=== PATIENT | male | born 1945 | race Caucasian/White ===

== ENCOUNTER → 2018-07-29 | Outpatient (CLI) | payer MEDICARE, BC ==
--- NOTE | 2018-07-29 09:19 | Diagnostic Imaging Report ---
TECHNIQUE: Magnetic resonance imaging of the RIGHT KNEE was performed WITHOUT injected contrast. HISTORY: Right knee pain COMPARISON: None available. FINDINGS: LIGAMENTS AND TENDONS: ACL: Intact PCL: Intact Collateral ligaments: Intact Iliotibial band: Unremarkable Popliteal tendon: Intact Extensor mechanism: Intact JOINT: Menisci: Medial: Small horizontal tear involving the posterior horn sagittal image 14. Lateral: Intact without tear. Degenerative signal within the anterior horn. Articular Cartilage: Medial Compartment: Diffuse partial-thickness cartilage loss. Focal high-grade fissuring involving the weightbearing femoral condyle Lateral Compartment: Diffuse partial-thickness cartilage loss Patellofemoral Compartment: Diffuse high-grade cartilage loss with areas of full-thickness erosion Joint Fluid: Joint effusion. Small Mcnair's cyst. BONE: No focal or infiltrative bone marrow replacing abnormality. No acute fracture. SOFT TISSUES: Otherwise, unremarkable. IMPRESSION: Medial meniscus small horizontal tear posterior horn. Patellofemoral compartment predominant cartilage loss. Signed by: Dr. Rafael Cazares M.D. on 07/29/2018 9:16 AM
== END ==
LOC: MRI 07:38
PROVIDERS: ATTEND Specialist
DX: S83.281A Other tear of lateral meniscus, current injury, right knee, initial encounter (principal)

== ENCOUNTER 2022-05-07 06:37 | Inpatient (IN) | payer MEDICARE, BC ==
[2022-05-04 09:07] LABS: BASOPHILS # (AUTO) 0.1 (0.0-0.1); BASOPHILS % 1.3 % (0.0-1.0); EOSINOPHILS # (AUTO) 0.5 (0.0-0.4); EOSINOPHILS % 6.4 % (0.0-6.0); HEMATOCRIT 44.1 % (38.2-49.6); HEMOGLOBIN 14.4 g/dL (14.0-18.0); LYMPHOCYTES # (AUTO) 2.3 (1.0-3.2); LYMPHOCYTES % 29.6 % (18.0-39.1); MEAN CORPUSCULAR HEMOGLOBIN 28.8 pg (28-32); MEAN CORPUSCULAR HGB CONC 32.7 g/dL (31-35); MEAN CORPUSCULAR VOLUME 88.2 fL (81-99); MONOCYTES # (AUTO) 0.7 (0.2-0.8); MONOCYTES % 8.9 % (4.4-11.3); NEUTROPHILS # (AUTO) 4.2 (2.1-6.9); NEUTROPHILS % 53.4 % (38.7-80.0); PLATELET COUNT 284 x10e3/uL (140-360); RED CELL DISTRIBUTION WIDTH 13.6 % (11.7-14.4)
[2022-05-04 09:46] LABS: ANION GAP 13.5 mmol/L (8-16); CREATININE, SERUM 0.92 mg/dL (0.72-1.25); POTASSIUM 4.5 mmol/L (3.5-5.1)
[~2022-05-07] VITALS: Ht 175.3 cm; Wt 81.8 kg
[~2022-05-07 06:37] MED LIST: FLOMAX0.4 MG PO; FLONASE ALLERG9.9 ML INH; GINGER250 MG PO; GLUCOSAMINE1000 MG PO; ZYRTEC10 M3 PO
[2022-05-07] MEDS ORDERED: LACTATED RINGER'S 1,000 ML ONE (07:11)
[2022-05-07] MEDS ORDERED: CEFAZOLIN SODIUM 0 GM ONE (07:11)
[2022-05-07] MEDS ORDERED: CEFTRIAXONE 1 GM VIAL ONE (07:12)
[2022-05-07] MEDS ORDERED: SUGAMMADEX SODIUM 200 MG/2 ML VIAL IV ONE (08:33)
[2022-05-07] MEDS ORDERED: ACETAMINOPHEN 1000 MG/100 ML 100 ML IV ONE (08:33)
[2022-05-07] MEDS ORDERED: MANNITOL 20 % 500 ML BAG IV ONE (08:53)
[2022-05-07] MEDS ORDERED: THROMBIN FOR SOLN 5,000 UNIT VIAL ONE ×2 (09:01→09:02)
[2022-05-07] MEDS ORDERED: FENTANYL CITRATE/PF 100MCG/2 ML INJ ONE ×2 (09:03→11:49)
[2022-05-07] MEDS ORDERED: BUPIVACAINE 0.25% 30ML SDV ONE (11:18)
[2022-05-07] MEDS ORDERED: NALOXONE HCL INJ 0.4 MG/ML AMP IV PRN (11:30)
[2022-05-07] MEDS ORDERED: MORPHINE SULFATE 1 MG/ML 30ML PCA IV PRN (11:30)
[2022-05-07] MEDS ORDERED: MORPHINE SULFATE 1 MG/ML 30ML PCA ONE (11:44)
[2022-05-07 12:46] VITALS: BP 139/71
[2022-05-07 13:00] VITALS: BP 139/71
[2022-05-07] MEDS ORDERED: DEXTROSE 5%/LACTATED RINGERS 1,000 ML IV ONE ×2 (13:00→22:15)
[2022-05-07] MEDS ORDERED: ROCURONIUM BROMIDE 10 MG/ML 5ML VIAL IV ONE (13:27)
[2022-05-07] MEDS ORDERED: POVIDONE IODINE 0.05% 0.05 % ML PO ONE (13:27)
[2022-05-07] MEDS ORDERED: SEVOFLURANE INHAL SOLN 250 ML PEN BTL ONE (13:27)
[2022-05-07] MEDS ORDERED: LIDOCAINE HCL 2% LOCAL INJ 5 ML SDV VIAL INJ ONE (13:27)
[2022-05-07] MEDS ORDERED: DEXAMETHASONE SOD PHOS INJ 4 MG/ML SDV ONE (13:27)
[2022-05-07] MEDS ORDERED: ONDANSETRON HCL INJ 2MG/ML 2ML 2 MG/ML VIAL ONE (13:27)
[2022-05-07] MEDS ORDERED: PROPOFOL IV EMULSION 10 MG/ML 20 ML VIAL ONE (13:27)
[2022-05-07 16:08] VITALS: BP 124/76
[2022-05-07 16:22] VITALS: BP 124/76
[2022-05-07 20:00] VITALS: BP 137/76
[2022-05-07 20:12] VITALS: BP 124/76
[2022-05-08] VITALS: BP 129/63
[2022-05-08 05:31] LABS: BASOPHILS # (AUTO) 0.1 (0.0-0.1); BASOPHILS % 0.4 % (0.0-1.0); EOSINOPHILS % 0.1 % (0.0-6.0); HEMATOCRIT 38.4 % (38.2-49.6); LYMPHOCYTES # (AUTO) 2.2 (1.0-3.2); LYMPHOCYTES % 14.7 % (18.0-39.1); MEAN CORPUSCULAR HEMOGLOBIN 28.7 pg (28-32); MEAN CORPUSCULAR HGB CONC 31.3 g/dL (31-35); MEAN CORPUSCULAR VOLUME 91.9 fL (81-99); MONOCYTES # (AUTO) 1.9 (0.2-0.8); NEUTROPHILS # (AUTO) 10.6 (2.1-6.9); NEUTROPHILS % 71.5 % (38.7-80.0); PLATELET COUNT 199 x10e3/uL (140-360); RED BLOOD COUNT 4.18 x10e6/uL (4.3-5.7); RED CELL DISTRIBUTION WIDTH 14.1 % (11.7-14.4)
[2022-05-08 05:46] VITALS: BP 135/62
[2022-05-08 05:57] LABS: ANION GAP 14.5 mmol/L (8-16); CALCIUM 8.3 mg/dL (8.4-10.2); CREATININE, SERUM 1.04 mg/dL (0.72-1.25); POTASSIUM 4.5 mmol/L (3.5-5.1)
[2022-05-08] MEDS: DOCUSATE SODIUM 100 MG CAP PO SCH ×2 (08:31→16:36)
[2022-05-08] MEDS: ONDANSETRON HCL INJ 2MG/ML 2ML 2 MG/ML VIAL IV PRN ×4 (08:32→20:23)
[2022-05-08 09:00] VITALS: BP 135/62
[2022-05-08 12:00] VITALS: BP 147/82
[2022-05-08] MEDS: HYDROCODONE/APAP 5MG-325MG TAB PO PRN (13:11)
[2022-05-08] MEDS: DEXTROSE 5%/LACTATED RINGERS 1,000 ML IV SCH (14:40)
[2022-05-08 16:00] VITALS: BP 133/79
[2022-05-08] MEDS: HYDROMORPHONE 1MG/1ML INJ IV PRN ×2 (16:36→22:44)
[2022-05-08 20:00] VITALS: BP 161/87
[2022-05-08] MEDS ORDERED: LORAZEPAM INJ 2 MG/ML VIAL IV ONE (22:30)
[2022-05-09] VITALS (7 sets, daily range): BP systolic 135–164; BP diastolic 76–96
[2022-05-09] MEDS: DEXTROSE 5%/LACTATED RINGERS 1,000 ML IV SCH ×3 (00:38→20:35)
[2022-05-09] MEDS: ONDANSETRON HCL INJ 2MG/ML 2ML 2 MG/ML VIAL IV PRN ×4 (00:41→17:02)
[2022-05-09] MEDS: HYDROMORPHONE 1MG/1ML INJ IV PRN ×3 (04:33→17:03)
[2022-05-09] MEDS: DOCUSATE SODIUM 100 MG CAP PO SCH ×2 (08:43→17:02)
[2022-05-09] MEDS: HYDROCODONE/APAP 5MG-325MG TAB PO PRN (08:43)
[2022-05-09] MEDS ORDERED: LORAZEPAM INJ 2 MG/ML VIAL IV PRN (18:45)
[2022-05-09] MEDS ORDERED: HYDROMORPHONE 1MG/1ML INJ IV PRN (19:45)
[2022-05-09] MEDS: PROMETHAZINE 12.5MG/ NACL 0.9% 12.5 MG/50 ML BAG IV PRN (20:38)
[2022-05-10] VITALS (8 sets, daily range): BP systolic 113–143; BP diastolic 60–76
[2022-05-10] MEDS: ONDANSETRON HCL INJ 2MG/ML 2ML 2 MG/ML VIAL IV PRN (00:01)
[2022-05-10] MEDS: DEXTROSE 5%/LACTATED RINGERS 1,000 ML IV SCH ×2 (05:28→16:30)
[2022-05-10] MEDS: DOCUSATE SODIUM 100 MG CAP PO SCH ×2 (09:40→16:25)
[2022-05-10] MEDS: PROMETHAZINE 12.5MG/ NACL 0.9% 12.5 MG/50 ML BAG IV PRN (09:57)
[2022-05-11] MEDS: DEXTROSE 5%/LACTATED RINGERS 1,000 ML IV SCH (02:30)
[2022-05-11 04:00] VITALS: BP 125/70
[2022-05-11 08:00] VITALS: BP 141/79
[2022-05-11 08:59] VITALS: BP 141/79
[2022-05-11] MEDS: DOCUSATE SODIUM 100 MG CAP PO SCH (09:10)
[2022-05-11 12:00] VITALS: BP 143/77
[2022-05-11] MEDS ORDERED: ONDANSETRON HCL 4 MG ORAL DISINTEGRATING TAB PO PRN (12:15)
== END 2022-05-11 13:03 | disposition home or self-care (01) | DRG 658 ==
LOC: OR 06:37 → PACU V 11:42 → MED/SURG 12:27
PROVIDERS: ADMIT Urology; ATTEND Urology
PROC: 0TB00ZZ Excision of Right Kidney, Open Approach (ICD-10-PCS; principal; 2022-05-07 09:03)
DX: C64.1 Malignant neoplasm of right kidney, except renal pelvis (principal); N32.0 Bladder-neck obstruction; Z20.822 Contact with and (suspected) exposure to COVID-19
CPT/HCPCS: 0223U; 36415; 71046; 80048; 85025; 86850; 86900; 88304; 88307; 88333; 88342; 93005; 94799; 96361; J0696; J1100; J1170; J2001; J2060; J2270; J2405; J2550